=== PATIENT | male | born 1985 | race Caucasian/White ===

== ENCOUNTER 2017-01-18 11:18 | Emergency (ER) | payer SELFPAY ==
[2017-01-18 11:37] VITALS: BP 120/80
--- NOTE | 2017-01-18 12:13 | ER Document Report ---
ED Hand/Wrist Injury - General Chief Complaint: Laceration Stated Complaint: FINGER INJURY Time seen by provider: 12:08 Mode of Arrival: Ambulatory Information source: Patient Notes: 31-year-old male presents to ED for a laceration to his left fifth finger. Laceration is very superficial no bleeding. Patient stated he did not know he cut himself until he looked down and saw that he was bleeding. TRAVEL OUTSIDE OF THE [place] IN LAST 30 DAYS: No - HPI Injury to: Small finger Onset: This morning Where: Home, Indoors Timing: Still present Quality of pain: Burning Severity: Mild Pain Level: 2 Context: Laceration - Very superficial - Related Data Allergies/Adverse Reactions: No Known Allergies Allergy (Verified 01/18/17 11:33) Past Medical History - General Information source: Patient - Social History Smoking Status: Current Every Day Smoker Cigarette use (# per day): Yes - less than half a pack a day Chew tobacco use (# tins/day): No Smoking Education Provided: Yes - less than 2 minutes Drug Abuse: None Occupation: [employer] Lives with: Spouse/Significant other Family History: Arthritis, CAD, COPD, CVA, DM, Hyperlipidemia, Hypertension, Malignancy, Thyroid Disfunction Patient has suicidal ideation: No Patient has homicidal ideation: No - Past Medical History Cardiac Medical History: Reports: None Pulmonary Medical History: Reports: Hx Bronchitis, Hx Pneumonia EENT Medical History: Reports: None Neurological Medical History: Reports: None Endocrine Medical History: Reports: None Renal/ Medical History: Reports: Other - Hypospadias Malignancy Medical History: Reports None GI Medical History: Reports: None Musculoskeltal Medical History: Reports None Skin Medical History: Reports None Psychiatric Medical History: Reports: None Traumatic Medical History: Reports: None Infectious Medical History: Reports: None Past Surgical History: Reports: Hx Tonsillectomy, Hx Urinary Tract Surgery - Repair of hypospadias - Immunizations Hx Diphtheria, Pertussis, Tetanus Vaccination: Yes Review of Systems - Review of Systems Constitutional: No symptoms reported EENT: No symptoms reported Cardiovascular: No symptoms reported Respiratory: No symptoms reported Gastrointestinal: No symptoms reported Genitourinary: No symptoms reported Male Genitourinary: No symptoms reported Musculoskeletal: No symptoms reported Skin: Other - Superficial laceration to the fifth left finger Hematologic/Lymphatic: No symptoms reported Neurological/Psychological: No symptoms reported -: Yes All other systems reviewed and negative Physical Exam - Vital signs Vitals: Temp Pulse Resp BP Pulse Ox 97.8 F 94 16 120/80 98 01/18/17 11:34 01/18/17 11:34 01/18/17 11:34 01/18/17 11:34 01/18/17 11:34 Interpretation: Normal - General General appearance: Appears well, Alert - HEENT Head: Normocephalic, Atraumatic Eyes: Normal Pupils: PERRL - Respiratory Respiratory status: No respiratory distress Chest status: Nontender Breath sounds: Normal Chest palpation: Normal - Cardiovascular Rhythm: Regular Heart sounds: Normal auscultation Murmur: No - Abdominal Inspection: Normal Distension: No distension Bowel sounds: Normal Tenderness: Nontender Organomegaly: No organomegaly - Back Back: Normal, Nontender - Extremities General upper extremity: Normal inspection, Nontender, Normal color, Normal ROM , Normal temperature General lower extremity: Normal inspection, Nontender, Normal color, Normal ROM , Normal temperature, Normal weight bearing. No: Crescencio's sign - Neurological Neuro grossly intact: Yes Cognition: Normal Orientation: AAOx4 Jarad Coma Scale Eye Opening: Spontaneous [place] Coma Scale Verbal: Oriented Jarad Coma Scale Motor: Obeys Commands Jarad Coma Scale Total: 15 Speech: Normal Motor strength normal: LUE, RUE, LLE, RLE Sensory: Normal - Psychological Associated symptoms: Normal affect, Normal mood - Skin Skin Temperature: Warm Skin Moisture: Dry Skin Color: Normal Skin irregularity: Laceration - Left fifth finger very superficial Course - Re-evaluation Re-evalutation: 01/18/17 12:15 Finger cleaned with warm water and soap and bacitracin applied with a Band-Aid. 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 - Vital Signs Vital signs: Temp Pulse Resp BP Pulse Ox 97.8 F 94 16 120/80 98 01/18/17 11:34 01/18/17 11:34 01/18/17 11:34 01/18/17 11:34 01/18/17 11:34 Discharge - Discharge Clinical Impression: laceration left fifth finger Condition: Stable Disposition: HOME, SELF-CARE Instructions: Family Physicians / Practices Additional Instructions: NON-SUTURED LACERATION: Your laceration did not require suturing. Some lacerations cannot be sutured because of increased infection risk, while others simply don't need stitches because they are shallow or very short. Your injury should be protected while it heals. Usually complete healing takes 10 to 14 days. Keep the dressing clean and dry, and change it every day. If you notice increasing pain, redness, swelling, drainage, or tender lumps in the armpit or groin above the injury, infection may be present. You should call the doctor at once. SOAP CLEANSING: Gently wash the wound daily using a mild soap (like Ivory, Phisoderm, Neutrogena). Use warm water, rubbing gently until all debris, ooze, and crusting have been washed from the wound. Allow to dry briefly (about 10 minutes) after cleaning. Repeat this cleansing at least three times a day for the first two days and then once or twice a day. ANTIBIOTIC OINTMENT PROTECTION: Your wounds are such that dressing them is not practical or optional. After cleansing, you should apply a thin coating of antibiotic ointment ( Bacitracin, not Neosporin) to the wounds at least three times daily. This lessens infection risk, and may decrease the amount of scarring. Use a q-tip or dull butter knife, not your finger, to apply this ointment. Any debris or ooze which builds up in the ointment should be gently rubbed off with a sterile gauze pad. Harder crusting may need to be gently scrubbed off with a clean wash cloth with soap and warm water, perhaps applying a warm, wet wash cloth to the wound for ten minutes first. Development of redness, severe itching, or blistering may mean allergy to the ointment. See the doctor. FOLLOW-UP CARE: If you have been referred to a physician for follow-up care, call the physician s office for an appointment as you were instructed or within the next two days. If you experience worsening or a significant change in your symptoms, notify the physician immediately or return to the Emergency Department at any time for re-evaluation. Please complete the patient's satisfaction survey if you get one and return. If you do not receive a survey you can go to [facility] website [email or web address] and placed her comments about your very good care. Thank you very much. It was a pleasure be in your medical provider today. Forms: Return to Work, Smoking Cessation Education
== END 2017-01-18 12:20 | disposition home or self-care (01) ==
LOC: ER 11:18
DX: S61.217A Laceration without foreign body of left little finger without damage to nail, initial encounter (principal); W45.8XXA Other foreign body or object entering through skin, initial encounter; Y92.009 Unspecified place in unspecified non-institutional (private) residence as the place of occurrence of the external cause; F17.210 Nicotine dependence, cigarettes, uncomplicated; Z71.6 Tobacco abuse counseling
CPT/HCPCS: 99282

== ENCOUNTER 2017-05-06 20:48 | Emergency (ER) | payer SELFPAY ==
--- NOTE | 2017-05-06 22:01 | RADIOLOGY REPORT (SQ) ---
EXAM DESCRIPTION: FOOT RIGHT COMPLETE COMPLETED DATE/TIME: 05/06/2017 9:43 pm REASON FOR STUDY: pain COMPARISON: None. NUMBER OF VIEWS: Three views. TECHNIQUE: AP, lateral and oblique radiographic images acquired of the right foot. LIMITATIONS: None. FINDINGS: MINERALIZATION: Normal. BONES: Fracture is identified involving the distal end of the proximal phalanx of the 2nd digit which extends to the articular surface. No other evidence for fracture is seen. JOINTS: No effusions. SOFT TISSUES: No soft tissue swelling. No foreign body. OTHER: No other significant finding. IMPRESSION: Fracture involving the distal end of the proximal phalanx of the 2nd digit as noted hermelinda gautam. No other evidence for fracture is seen TECHNICAL DOCUMENTATION: JOB ID: [id number] [email or web address]- All Rights Reserved
--- NOTE | 2017-05-06 22:17 | ER Document Report ---
ED Extremity Problem, Lower - General Chief Complaint: Foot Injury Stated Complaint: POSSIBLE RIGHT FOOT BROKEN Time Seen by Provider: 05/06/17 21:55 Information source: Patient, Relative TRAVEL OUTSIDE OF THE [place] IN LAST 30 DAYS: No - HPI Location: 3rd Toe Where: Home Recent injury: Yes - Related Data Allergies/Adverse Reactions: No Known Allergies Allergy (Verified 05/06/17 21:17) Past Medical History - Social History Smoking Status: Never Smoker Family History: Reviewed & Not Pertinent Patient has suicidal ideation: No Patient has homicidal ideation: No Pulmonary Medical History: Reports: Hx Bronchitis, Hx Pneumonia Renal/ Medical History: Denies: Hx Peritoneal Dialysis Past Surgical History: Reports: Hx Tonsillectomy, Hx Urinary Tract Surgery - Immunizations Hx Diphtheria, Pertussis, Tetanus Vaccination: Yes Review of Systems - Review of Systems Musculoskeletal: Other - pain To third digit right foot Skin: No symptoms reported Neurological/Psychological: No symptoms reported Physical Exam - Vital signs Vitals: Temp Pulse Resp BP Pulse Ox 98.3 F 56 L 18 123/63 98 05/06/17 21:18 05/06/17 21:18 05/06/17 21:18 05/06/17 21:18 05/06/17 21:18 - General General appearance: Appears well, Alert - Respiratory Respiratory status: No respiratory distress Chest status: Nontender Breath sounds: Normal Chest palpation: Normal - Cardiovascular Rhythm: Regular Heart sounds: Normal auscultation Murmur: No - Extremities General upper extremity: Tender - Pain swelling and ecchymosis at the third digit of the right foot, tenderness or deformity at the ankle or proximal tib- fib. Course - Re-evaluation Re-evalutation: 05/06/17 23:54 got angry and kicked the chair yesterday. Is complaining of pain at the right phalanx of his foot. Denies any other history or injury. 05/06/17 23:57 stable phalanyx fracture of the right third digit. given post op shoe crutches ice elevation and pcp follow up - Vital Signs Vital signs: Temp Pulse Resp BP Pulse Ox 98.3 F 56 L 16 130/84 H 99 05/06/17 22:23 05/06/17 22:23 05/06/17 22:23 05/06/17 22:23 05/06/17 22:23 Discharge - Discharge Clinical Impression: closed fracture phalanx toe Condition: Stable Disposition: HOME, SELF-CARE Additional Instructions: Fractured Toe You have fractured your toe. Although this fracture doesn't need a cast or splint, emergency evaluation was needed to assess the straightness of the bones and joints. Reduction ("setting") is necessary for toe fractures which are crooked or twisted. A toe fracture will heal in about three weeks. Usually, the fractured toe is taped to the next toe. The second toe acts as a moving splint to protect the broken one. Ice and elevation help during the first 48 hours. You may need crutches at first if walking is painful. When you begin walking, be careful NOT to do things that hurt. If weight bearing is not comfortable within a few days, you may require a special shoe, walking boot, or cast. Call the doctor or return at once if severe swelling, severe pain, or numbness develop in the toe, or if you suspect you may have re-injured it. Prescriptions: Naproxen [Naprosyn 375 Mg Tablet] 375 mg PO PRN PRN #12 tablet PRN Reason: Forms: Return to Work Referrals: [facility] [Provider Group] (5-7 days return to er sooner for increasing worsening or new symptoms)
[2017-05-06] MEDS ORDERED: HYDROCODONE/ACETAMINOPHEN 5-325 MG TABLET PO ONE (22:21)
[2017-05-06 22:24] VITALS: BP 130/84
== END 2017-05-06 22:48 | disposition home or self-care (01) ==
LOC: ER 20:48
DX: S92.511A Displaced fracture of proximal phalanx of right lesser toe(s), initial encounter for closed fracture (principal); W22.03XA Walked into furniture, initial encounter; Y92.009 Unspecified place in unspecified non-institutional (private) residence as the place of occurrence of the external cause
CPT/HCPCS: 99283

== ENCOUNTER 2017-07-26 16:29 | Emergency (ER) | payer SELFPAY ==
[2017-07-26] MEDS ORDERED: PREDNISONE 20 MG TABLET PO ONE (17:41)
--- NOTE | 2017-07-26 17:42 | ER Document Report ---
HPI - HPI Patient complains to provider of: cough, congestion, fever Pain Level: 0 Context: Patient is a 32-year-old male comes emergency department for chief complaint of fever, cough, congestion for the past 2 days. He has been exposed to his children who are sick with similar symptoms although he is unsure of their specific diagnosis. He wants to be tested for the flu. He smokes, he denies any daily medications. - DERM Skin Color: Normal Past Medical History - General Information source: Patient - Social History Smoking Status: Never Smoker Frequency of alcohol use: None Drug Abuse: None Lives with: Family Family History: Reviewed & Not Pertinent Patient has suicidal ideation: No Patient has homicidal ideation: No Pulmonary Medical History: Reports: Hx Bronchitis, Hx Pneumonia Renal/ Medical History: Denies: Hx Peritoneal Dialysis Past Surgical History: Reports: Hx Tonsillectomy, Hx Urinary Tract Surgery - Immunizations Hx Diphtheria, Pertussis, Tetanus Vaccination: Yes Vertical Provider Document - CONSTITUTIONAL General Appearance: WD/WN, No Apparent Distress - INFECTION CONTROL TRAVEL OUTSIDE OF THE [place] IN LAST 30 DAYS: No - HEENT HEENT: Atraumatic, Normocephalic. negative: Normal ENT Exam - Sinus congestion and mild maxillary sinus tenderness, otherwise unremarkable ENT exam - RESPIRATORY Respiratory: Breath Sounds Normal, No Respiratory Distress, Other - A few coarse breath sounds, otherwise good breath sounds O2 Sat by Pulse Oximetry: 99 - CARDIOVASCULAR Cardiovascular: Regular Rate, Regular Rhythm - GI/ABDOMEN Gastrointestinal: Abdomen Soft, Abdomen Non-Tender - MUSCULOSKELETAL/EXTREMETIES Musculoskeletal/Extremeties: MAEW, FROM, Non-Tender - NEURO Level of Consciousness: Awake, Alert, Appropriate - DERM Integumentary: Warm, Dry, No Rash Course - Re-evaluation Re-evalutation: Influenza negative. Patient with multiple exposures which does not suggest pneumonia, symptoms started yesterday. Discussed x-ray but this was declined. No respiratory distress on examination although patient does have some coarse breath sounds and is a smoker, has some sinus tenderness. Patient will be placed on prednisone and azithromycin. - Vital Signs Vital signs: Temp Pulse Resp BP Pulse Ox 98.5 F 78 12 126/80 H 99 07/26/17 16:44 07/26/17 16:44 07/26/17 16:44 07/26/17 16:44 07/26/17 16:44 Discharge - Discharge Clinical Impression: Cough, Sinus congestion Fever Qualifiers: Fever type: unspecified Qualified Code(s): R50.9 - Fever, unspecified Condition: Stable Disposition: HOME, SELF-CARE Additional Instructions: Your influenza test is negative. This could still be viral, but you are being treated for bronchitis with possible early underlying pneumonia. Take the prednisone as prescribed, take the azithromycin as prescribed, take Tylenol or ibuprofen for fever and chills, drink plenty of fluids and rest. Follow-up with primary care. Return to emergency department for any concerning worsening symptoms including difficulty breathing. Prescriptions: Azithromycin [Zithromax] 250 mg PO DAILY #4 tablet Prednisone [Deltasone 10 mg Tablet] 10 mg PO ASDIR PRN #21 tablet PRN Reason: Forms: Return to Work
[2017-07-26] MEDS ORDERED: AZITHROMYCIN 250 MG TABLET PO ONE (19:19)
[2017-07-26 20:47] VITALS: BP 124/70
== END 2017-07-26 20:47 | disposition home or self-care (01) ==
LOC: ER 16:29
DX: R05 Cough (principal); R50.9 Fever, unspecified; R09.81 Nasal congestion; F17.200 Nicotine dependence, unspecified, uncomplicated
CPT/HCPCS: 99283; 87804; J7512

== ENCOUNTER 2018-01-27 16:58 | Emergency (ER) | payer SELFPAY ==
--- NOTE | 2018-01-27 17:46 | ER Document Report ---
ED ENT - General Chief Complaint: Sore Throat Stated Complaint: SORE THROAT Time Seen by Provider: 01/27/18 17:17 Mode of Arrival: Ambulatory Information source: Patient TRAVEL OUTSIDE OF THE [place] IN LAST 30 DAYS: No - HPI Patient complains to provider of: Throat problem, Other - cough Notes: Patient is here with complaints of cough, congestion, sore throat, body aches, fever for the last 3 days. Fever seems to have resolved although he does report waking up sweaty this morning. He denies any rash. He denies any nausea , vomiting, diarrhea. He denies any abdominal pain. He states that he has some pain in the right side of his chest when he coughs, but denies any shortness of breath. No rash. He denies any chronic medical problems. He takes no daily medications. He is a smoker. He denies any headache, blurred vision, numbness, tingling, weakness. Nothing makes his symptoms better or worse. States that his son was recently ill with pinkeye and pneumonia. - Related Data Allergies/Adverse Reactions: No Known Allergies Allergy (Verified 07/26/17 16:44) Past Medical History - Social History Smoking Status: Current Every Day Smoker Frequency of alcohol use: None Drug Abuse: None Family History: Reviewed & Not Pertinent Patient has suicidal ideation: No Patient has homicidal ideation: No Pulmonary Medical History: Reports: Hx Bronchitis, Hx Pneumonia Renal/ Medical History: Denies: Hx Peritoneal Dialysis Past Surgical History: Reports: Hx Tonsillectomy, Hx Urinary Tract Surgery - Immunizations Hx Diphtheria, Pertussis, Tetanus Vaccination: Yes Review of Systems - Review of Systems -: Yes All other systems reviewed and negative Physical Exam - Vital signs Vitals: Temp Pulse Resp BP Pulse Ox 97.8 F 83 16 129/87 H 99 01/27/18 17:01 01/27/18 17:01 01/27/18 17:01 01/27/18 17:01 01/27/18 17:01 - Notes Notes: GENERAL: alert, cooperative, nontoxic, no distress. HEAD: normocephalic, atraumatic EYES: conjunctiva pink without discharge, no external redness or swelling. EARS: no external swelling, no external redness, no mastoid redness, swelling, tenderness. Ear canals are clear without swelling or drainage. TMs pearly rojas , no redness, no bulging, normal landmarks, no perforation. NOSE: atraumatic, no external swelling. clear rhinorrhea noted. MOUTH/THROAT: mucous membranes moist and pink, posterior pharynx without erythema, swelling, exudate. No trismus or drooling. NECK: soft, supple, full range of motion, no meningismus. CHEST: no distress, lungs clear and equal throughout. No wheezing, rales, rhonchi. CARDIAC: regular rate and rhythm, no murmur, normal capillary refill, normal pulses. No peripheral edema noted. BACK: full range of motion, no CVA tenderness. EXTREMITIES: full range of motion of all extremities. No redness, no swelling. NEURO: alert and oriented A&O3, no focal deficits, full range of motion of all extremities. PYSCH: appropriate mood, affect. Patient is cooperative. SKIN: pink, warm, dry, no rash. Course - Re-evaluation Re-evalutation: 01/27/18 19:37 Patient is nontoxic appearing stable vitals. Is here with complaints of flulike symptoms with sore throat, body aches, fatigue, cough. He states that he felt like he had fevers the first day but that seems to has resolved. Occasional pain in his chest only with coughing. No chest pain currently. No shortness of breath. He is not hypoxic. Patient states he is actually starting to feel somewhat better. States that he was supposed to work tonight and is concerned that he may not be able to work tonight. This point the patient had a negative chest x-ray and a negative strep. Likely has either influenza or viral syndrome. He will be discharged home with symptomatic treatment. He states that he currently has Motrin and TheraFlu at home. Instructed that these would be fine to take for his symptomatic relief. He should follow-up if he has not improved in the next 5-7 days, sooner for worsening symptoms, high fever, persistent vomiting, difficulty breathing, or for any further concerns. The patient is noted to have elevated blood pressure during today's emergency department visit. The patient was informed of this finding. The patient was instructed that this may be related to pre-hypertension and requires further evaluation with a primary care provider. The patient has no hypertensive symptoms at this time. The patient's emergency department workup and current diagnosis were explained to the patient and or family. Follow-up instructions were provided. Medications if prescribed were discussed. Instructions for when to return to the emergency department including specific worrisome symptoms were discussed with the patient and/or family. - Vital Signs Vital signs: Temp Pulse Resp BP Pulse Ox 97.8 F 83 16 129/87 H 99 01/27/18 17:01 01/27/18 17:01 01/27/18 17:01 01/27/18 17:01 01/27/18 17:01 - Diagnostic Test Radiology reviewed: Image reviewed, Reports reviewed - Negative chest x-ray Discharge - Discharge Clinical Impression: Viral syndrome URI (upper respiratory infection) Qualifiers: URI type: unspecified viral URI Qualified Code(s): J06.9 - Acute upper respiratory infection, unspecified Condition: Stable Disposition: HOME, SELF-CARE Instructions: Upper Respiratory Illness ([facility]), Viral Syndrome ([facility]), Family Physicians / Practices Additional Instructions: Take your [id number] medication as directed. Drink plenty of fluids. Follow-up if not better in 5-7 days, sooner for worsening symptoms, difficulty breathing, severe abdominal pain, persistent vomiting, or for any further concerns. Your blood pressure was elevated during today's visit. Have this rechecked with your doctor. Forms: Elevated Blood Pressure, Smoking Cessation Education, Return to Work Referrals: [facility] [Provider Group] - Follow up as needed
--- NOTE | 2018-01-27 17:47 | RADIOLOGY REPORT (SQ) ---
EXAM DESCRIPTION: CHEST 2 VIEWS COMPLETED DATE/TIME: 01/27/2018 5:38 pm REASON FOR STUDY: cough, right chest pain, fever COMPARISON: 06/12/2013 EXAM PARAMETERS: NUMBER OF VIEWS: two views TECHNIQUE: Digital Frontal and Lateral radiographic views of the chest acquired. RADIATION DOSE: NA LIMITATIONS: none FINDINGS: LUNGS AND PLEURA: No opacities, masses or pneumothorax. No pleural effusion. MEDIASTINUM AND HILAR STRUCTURES: No masses or contour abnormalities. HEART AND VASCULAR STRUCTURES: Heart normal size. No evidence for failure. BONES: No acute findings. HARDWARE: None in the chest. OTHER: No other significant finding. IMPRESSION: NO ACUTE RADIOGRAPHIC FINDING IN THE CHEST. TECHNICAL DOCUMENTATION: JOB ID: [id number] [employer]- All Rights Reserved Reading location - IP/workstation name: [email or web address]
[2018-01-27 19:50] VITALS: BP 124/78
== END 2018-01-27 19:51 | disposition home or self-care (01) ==
LOC: ER 16:58
DX: J06.9 Acute upper respiratory infection, unspecified (principal); B97.89 Other viral agents as the cause of diseases classified elsewhere; J02.9 Acute pharyngitis, unspecified; R05 Cough; R07.89 Other chest pain; R61 Generalized hyperhidrosis; F17.200 Nicotine dependence, unspecified, uncomplicated; R53.83 Other fatigue; Z87.01 Personal history of pneumonia (recurrent)
CPT/HCPCS: 71046; 87070; 87880; 99283

== ENCOUNTER 2018-08-03 07:50 | Emergency (ER) | payer SELFPAY ==
[2018-08-03] MEDS ORDERED: ASPIRIN 81 MG TABLET, CHEWABLE PO ONE (08:16)
--- NOTE | 2018-08-03 08:17 | ER Document Report ---
ED Cardiac - General Chief Complaint: Chest Pain Stated Complaint: CHEST PAIN Mode of Arrival: Ambulatory Information source: Patient Notes: 33 yo smoker , non drugs, no alcohol, tonsillectory, hypospadius salima got sudden onset left shoulder pain at 0345 after getting up to urinate. Radiated across chest over 3 minutes to right lower lung with deep breath. No recent URI or fever. No hx PE or pneumothorax. PMH: non dm, non htn, non hyperlipidemic. FM: grandparents CAD, COPD 70's, dad with severe CAD in late 40's TRAVEL OUTSIDE OF THE [place] IN LAST 30 DAYS: No - Related Data Allergies/Adverse Reactions: No Known Allergies Allergy (Verified 08/03/18 07:51) Past Medical History - General Information source: Patient - Social History Smoking Status: Current Every Day Smoker Lives with: Family Family History: Reviewed & Not Pertinent Pulmonary Medical History: Reports: Hx Bronchitis, Hx Pneumonia Renal/ Medical History: Denies: Hx Peritoneal Dialysis Surgical Hx: Negative Past Surgical History: Reports: Hx Tonsillectomy, Hx Urinary Tract Surgery - Immunizations Hx Diphtheria, Pertussis, Tetanus Vaccination: Yes Review of Systems - Review of Systems Constitutional: No symptoms reported EENT: No symptoms reported Cardiovascular: See HPI Respiratory: See HPI Gastrointestinal: No symptoms reported Genitourinary: No symptoms reported Male Genitourinary: No symptoms reported Musculoskeletal: See HPI Skin: No symptoms reported Hematologic/Lymphatic: No symptoms reported Neurological/Psychological: No symptoms reported Physical Exam - Vital signs Vitals: Pulse Ox 100 08/03/18 08:42 Interpretation: Normal - General General appearance: Appears well, Alert - HEENT Head: Normocephalic, Atraumatic Eyes: Normal Conjunctiva: Normal Pupils: PERRL Tympanic membrane: Normal Pharynx: Normal Neck: Supple. No: Lymphadenopathy, Thyromegally - Respiratory Respiratory status: No respiratory distress Chest status: Tender - right lower lateral chest wall, no rash Breath sounds: Normal Chest palpation: Normal - Cardiovascular Rhythm: Regular Heart sounds: Normal auscultation Murmur: No - Abdominal Inspection: Normal Distension: No distension Bowel sounds: Normal Tenderness: Nontender. No: Tender Organomegaly: No organomegaly - Back Back: Normal, Nontender. No: Tender, CVA tenderness, Vertebra tenderness - Extremities General upper extremity: Normal inspection, Nontender, Normal color, Normal ROM , Normal temperature General lower extremity: Normal inspection, Nontender, Normal color, Normal ROM , Normal temperature, Normal weight bearing. No: Crescencio's sign - Neurological Neuro grossly intact: Yes Cognition: Normal Orientation: AAOx4 Patton Coma Scale Eye Opening: Spontaneous Patton Coma Scale Verbal: Oriented Jarad Coma Scale Motor: Obeys Commands Patton Coma Scale Total: 15 Speech: Normal Motor strength normal: LUE, RUE, LLE, RLE Sensory: Normal - Psychological Associated symptoms: Normal affect, Normal mood - Skin Skin Temperature: Warm Skin Moisture: Dry Skin Color: Normal Skin irregularity: negative: Rash Course - Re-evaluation Re-evalutation: 08/03/18 10:[address] stevenson, rec lipid panel, ekg NSR incomplete RBBB , no EKG to compare to. chest xray is negative. other labs OK. 08/03/18 13:33 Second troponin is negative I will do the lifestyle instructions for changing which would be low-cholesterol diet, quit smoking, I will refer to family practice and also Dr. Wilson for cardiology recommended by Dr. Stevenson. - Vital Signs Vital signs: Temp Pulse Resp BP Pulse Ox 13 125/84 100 08/03/18 13:51 08/03/18 13:52 08/03/18 09:01 - Laboratory Result Diagrams: 08/03/18 08:35 08/03/18 08:35 Laboratory results interpreted by me: 08/03/18 08/03/18 08/03/18 08:35 08:35 08:35 WBC 10.6 H Carbon Dioxide 31 H ALT 15 L LDL Cholesterol Direct 147 H HDL Cholesterol 33 L Discharge - Discharge Clinical Impression: right lower lateral chest wall tender, Elevated LDL cholesterol level, Low HDL (under 40) Chest pain Qualifiers: Chest pain type: unspecified Qualified Code(s): R07.9 - Chest pain, unspecified Condition: Good Disposition: HOME, SELF-CARE Instructions: Aspirin (Cardiac) ([facility]), Chest Wall Pain ([facility]), Stop Smoking ([facility] ), Warm Packs ([facility]) Additional Instructions: 81 mg baby aspirin daily Quit smoking Call and schedule appointment with a family practice doctor Call and schedule an 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
--- NOTE | 2018-08-03 08:23 | EKG REPORT ---
SEVERITY:- ABNORMAL ECG - SINUS OR ECTOPIC ATRIAL RHYTHM INCOMPLETE RIGHT BUNDLE BRANCH BLOCK : Confirmed by: Chaim Wilson 03-Aug-2018 08:22:50
--- NOTE | 2018-08-03 08:48 | RADIOLOGY REPORT (SQ) ---
EXAM DESCRIPTION: CHEST 2 VIEWS COMPLETED DATE/TIME: 08/03/2018 8:37 am REASON FOR STUDY: sudden onset chest pain COMPARISON: 01/27/2018 EXAM PARAMETERS: NUMBER OF VIEWS: two views TECHNIQUE: Digital Frontal and Lateral radiographic views of the chest acquired. RADIATION DOSE: NA LIMITATIONS: none FINDINGS: LUNGS AND PLEURA: No opacities, masses or pneumothorax. No pleural effusion. MEDIASTINUM AND HILAR STRUCTURES: No masses or contour abnormalities. HEART AND VASCULAR STRUCTURES: Heart normal size. No evidence for failure. BONES: No acute findings. HARDWARE: None in the chest. OTHER: No other significant finding. IMPRESSION: NO ACUTE RADIOGRAPHIC FINDING IN THE CHEST. TECHNICAL DOCUMENTATION: JOB ID: [id number] [employer]- All Rights Reserved Reading location - IP/workstation name: [email or web address]
[2018-08-03 09:00] LABS: ABSOLUTE BASOPHILS # (AUTO) 0.1 10^3/uL (0.0-0.2); ABSOLUTE EOSINOPHILS # (AUTO) 0.3 10^3/uL (0.0-0.6); ABSOLUTE LYMPHOCYTES (AUTO) 2.7 10^3/uL (0.5-4.7); ABSOLUTE MONOCYTES (AUTO) 0.5 10^3/uL (0.1-1.4); BASOPHILS % (AUTO) 0.6 % (0-2); EOSINOPHILS % (AUTO) 2.8 % (0-6); HEMATOCRIT 47.3 % (37.9-51.0); HEMOGLOBIN 16.1 g/dL (13.5-17.0); LYMPHOCYTES % (AUTO) 25.1 % (13-45); MEAN CORPUSCULAR HEMOGLOBIN 30.8 pg (27.0-33.4); MEAN CORPUSCULAR HGB CONC 33.9 g/dL (32.0-36.0); MEAN CORPUSCULAR VOLUME 91 fl (80-97); MONOCYTES % (AUTO) 4.7 % (3-13); PLATELET COUNT 263 10^3/uL (150-450); RED BLOOD COUNT 5.22 10^6/uL (4.35-5.55); RED CELL DISTRIBUTION WIDTH 13.3 % (11.5-14.0); SEGMENTED NEUTROPHILS % (AUTO) 66.8 % (42-78); TOTAL CELLS COUNTED % (AUTO) 100 %; WHITE BLOOD COUNT 10.6 10^3/uL (4.0-10.5)
[2018-08-03 09:19] LABS: ALANINE AMINOTRANSFERASE 15 U/L (21-72); ALBUMIN 4.6 g/dL (3.5-5.0); ALKALINE PHOSPHATASE 62 U/L (38-126); ANION GAP 7 (5-19); ASPARTATE AMINO TRANSFERASE 24 U/L (17-59); BILIRUBIN,DIRECT 0.2 mg/dL (0.0-0.4); BILIRUBIN,TOTAL 0.6 mg/dL (0.2-1.3); BLOOD UREA NITROGEN 8 mg/dL (7-20); CALCIUM 9.9 mg/dL (8.4-10.2); CARBON DIOXIDE 31 mmol/L (22-30); CHLORIDE 105 mmol/L (98-107); CREATINE KINASE 107 U/L (55-170); GLUCOSE 95 mg/dL (75-110); POTASSIUM 4.5 mmol/L (3.6-5.0); SODIUM 143.2 mmol/L (137-145); TOTAL PROTEIN 7.2 g/dL (6.3-8.2)
[2018-08-03 09:32] LABS: TROPONIN I < 0.012 ng/mL
[2018-08-03 11:17] LABS: CHOLESTEROL 197.67 mg/dL (0-200); TRIGLYCERIDES 90 mg/dL (<150)
[2018-08-03 11:28] LABS: DIRECT LDL 147 mg/dL (<100)
[2018-08-03 13:54] VITALS: BP 125/84
== END 2018-08-03 13:54 | disposition home or self-care (01) ==
LOC: ER 07:50
DX: R07.1 Chest pain on breathing (principal); M25.512 Pain in left shoulder; E78.00 Pure hypercholesterolemia, unspecified; F17.200 Nicotine dependence, unspecified, uncomplicated; Z82.49 Family history of ischemic heart disease and other diseases of the circulatory system; Z82.5 Family history of asthma and other chronic lower respiratory diseases; Z87.01 Personal history of pneumonia (recurrent)
CPT/HCPCS: 36415; 71046; 80053; 80061; 82550; 82553; 84484; 85025; 93005; 93010; 99285

== ENCOUNTER 2018-11-08 17:20 | Emergency (ER) | payer SELFPAY | END 2018-11-08 17:40 | disposition left against medical advice (07) | LOC: ER 17:20 | DX: Z53.21 Procedure and treatment not carried out due to patient leaving prior to being seen by health care provider (principal) ==

== ENCOUNTER 2018-11-09 09:42 | Emergency (ER) | payer SELFPAY ==
[2018-11-09 09:46] VITALS: BP 118/76
[2018-11-09] MEDS ORDERED: KETOROLAC TROMETHAMINE INJ/PF 30 MG/1 ML SDV IM ONE (10:07)
--- NOTE | 2018-11-09 10:08 | ER Document Report ---
HPI - HPI Time Seen by Provider: 11/09/18 09:59 Pain Level: 3 Notes: Patient is a 28-year-old female who presents to the ED complaining of nasal congestion/discharge, dry nonproductive cough, fever (101H), body ache 2 days going on 3. Patient states that he is still eating and drinking without difficulties, but does have a decreased p.o. intake. He is still urinating normally having normal bowel movements. Patient has been using some [id number] meds for symptoms. He denies any significant past medical history including cardiopulmonary history and immunocompromised conditions. Patient denies any IV drug use. + smoker. Patient requesting work note. Denies any current headache, neck pain, sore throat, chest pain, palpitations, syncope, shortness of breath, wheeze, dyspnea, abdominal pain, nausea/vomiting/diarrhea, urinary retention, dysuria, hematuria, or rash. - ROS Systems Reviewed and Negative: Yes All other systems reviewed and negative Past Medical History - Social History Smoking Status: Current Every Day Smoker Family History: Reviewed & Not Pertinent Pulmonary Medical History: Reports: Hx Bronchitis, Hx Pneumonia Renal/ Medical History: Denies: Hx Peritoneal Dialysis Past Surgical History: Reports: Hx Tonsillectomy, Hx Urinary Tract Surgery - Immunizations Hx Diphtheria, Pertussis, Tetanus Vaccination: Yes Vertical Provider Document - CONSTITUTIONAL Agree With Documented VS: Yes Notes: PHYSICAL EXAMINATION: GENERAL: Well-appearing, well-nourished and in no acute distress. A&Ox4. Answ ers questions appropriately. Moves comfortably w/o notable distress HEAD: Atraumatic, normocephalic. EYES: Pupils equal round and reactive to light, extraocular movements intact, sclera anicteric, conjunctiva are normal. ENT: EAC clear b/l. TM's intact b/l without erythema, fluid, or perforation. Nares patent and with clear discharge. oropharynx no erythema without exudates. No tonsilar hypertrophy without erythema or exudate. No palatine shift. Uvula midline. No tongue protrusion. No drooling, hoarseness, or airway compromise. Moist mucous membranes. No sinus tenderness. NECK: Normal range of motion, supple without lymphadenopathy. No rigidity/meningismus. LUNGS: Breath sounds clear to auscultation bilaterally and equal. No wheezes rales or rhonchi. No retractions HEART: Regular rate and rhythm without murmurs, rubs, gallops. ABDOMEN: Soft, nontender, nondistended abdomen. No guarding, no rebound. No masses appreciated. Normal bowel sounds present. No CVA tenderness bilaterally. No hepatosplenomegaly. NEUROLOGICAL: Normal speech, normal gait. Normal sensory, motor exams PSYCH: Normal mood, normal affect. SKIN: Warm, Dry, normal turgor, no rashes or lesions noted. - INFECTION CONTROL TRAVEL OUTSIDE OF THE [place] IN LAST 30 DAYS: No Course - Re-evaluation Re-evalutation: 11/09/18 10:06 Patient is an afebrile, well-hydrated, 33-year-old male who presents to the ED with acute URI, suspect influenza. Vitals are acceptable. PE is otherwise unr emarkable. No labs or imaging warranted at this time based on H&P. Patient has no significant cardiopulmonary or immunocompromised medical conditions. Patient's lungs are clear to auscultation bilaterally without tachycardia, hypoxia, or tachypnea. Patient is tolerating p.o. without any difficulties. Thoroughly reviewed the risks, benefits, potential side effects, estimated cost without insurance with patient. After thorough review, patient declined Tamiflu at this time. Low suspicion for any meningitis, sepsis, peritonsillar/pharyngeal abscess, respiratory compromise, severe dehydration, or other emergent systemic condition at this time. Patient is aware this condition can change from initial presentation and he needs to monitor symptoms closely. Conservative measures otherwise for symptoms. Recheck with your PCM in 3-5 days. Return to the ED with any worsening/concerning symptoms otherwise as reviewed in discharge. Patient is in agreement. - Vital Signs Vital signs: Temp Pulse Resp BP Pulse Ox 98.0 F 102 H 16 118/76 100 11/09/18 09:45 11/09/18 09:45 11/09/18 09:45 11/09/18 09:45 11/09/18 09:45 Discharge - Discharge Clinical Impression: Acute URI Condition: Stable Disposition: HOME, SELF-CARE Instructions: Upper Respiratory Illness ([facility]) Additional Instructions: Maintain adequate fluid intake Take meds as directed tylenol/ibuprofen as needed over the counter cold medication as needed for symptoms Humidified air may help Wash your hands regularly Wear a mask when coughing F/u: with your PCM in 3-5 days for a recheck Return to the ED with any fever, worsening pain, chest pain, palpitations, syncope, worsening RENTERIA, neck pain/stiffness, shortness of breath, wheezing, drooling, trouble swallowing/breathing, abdominal pain, n/v/d, rash, or worsening/concerning symptoms otherwise. Referrals: [facility] [Provider Group] - Follow up as needed
== END 2018-11-09 10:34 | disposition home or self-care (01) ==
LOC: ER 09:42
DX: J06.9 Acute upper respiratory infection, unspecified (principal); R09.81 Nasal congestion; R09.89 Other specified symptoms and signs involving the circulatory and respiratory systems; R05 Cough; R50.9 Fever, unspecified; M79.10 Myalgia, unspecified site; R63.0 Anorexia; F17.200 Nicotine dependence, unspecified, uncomplicated
CPT/HCPCS: 99283; 96372; J1885

== ENCOUNTER 2019-09-30 08:14 | Emergency (ER) | payer SELFPAY ==
[2019-09-30 08:38] VITALS: BP 145/73
== END 2019-09-30 09:00 | disposition left against medical advice (07) ==
LOC: ER 08:14
DX: Z53.21 Procedure and treatment not carried out due to patient leaving prior to being seen by health care provider (principal)

== ENCOUNTER 2020-04-26 20:03 | Emergency (ER) | payer SELFPAY ==
--- NOTE | 2020-04-26 21:59 | ER Document Report ---
HPI - HPI Patient complains to provider of: Note for employer Time Seen by Provider: 04/26/20 21:48 Quality of pain: No pain Pain Level: Denies Context: Presents stating that he did not feel well 4 days ago had nausea and fever. Patient needs a COVID test prior to returning to work. Denies any symptoms at this time. Associated Symptoms: None Exacerbated by: Denies Relieved by: Denies Similar symptoms previously: No Recently seen / treated by doctor: No - ROS ROS below otherwise negative: Yes Systems Reviewed and Negative: Yes All other systems reviewed and negative - CONSTITUTIONAL Constitutional: REPORTS: Fever - 4 days ago - GASTROINTESTINAL Gastrointestinal: REPORTS: Nausea - 4 days ago, now resolved. DENIES: Patient vomiting - DERM Skin Color: Normal Skin Problems: None Past Medical History - General Information source: Patient - Social History Smoking Status: Current Every Day Smoker Frequency of alcohol use: None Drug Abuse: None Occupation: [employer] Family History: Reviewed & Not Pertinent Patient has homicidal ideation: No Pulmonary Medical History: Reports: Hx Bronchitis, Hx Pneumonia Renal/ Medical History: Denies: Hx Peritoneal Dialysis Past Surgical History: Reports: Hx Tonsillectomy, Hx Urinary Tract Surgery - Immunizations Hx Diphtheria, Pertussis, Tetanus Vaccination: Yes Vertical Provider Document - CONSTITUTIONAL Agree With Documented VS: Yes Exam Limitations: No Limitations General Appearance: WD/WN, No Apparent Distress Notes: Full physical exam could not be performed due to covid 19 isolation protocols. Constitutional: Nontoxic appearance, no acute distress Eyes: Nonicteric, extraocular movements intact, sclera clear Cardiovascular: Rate and rhythm normal, no JVD Respiratory: Sounds clear bilaterally, nonlabored breathing, no use of accessory muscles, no tachypnea Gastrointestinal: Abdomen not distended Muculoskeletal: Moves all extremities well, normal gait Skin: Normal color Neuro: Awake alert oriented, normal speech Psych: Normal mood and affect - INFECTION CONTROL TRAVEL OUTSIDE OF THE [place] IN LAST 30 DAYS: No Course - Re-evaluation Re-evalutation: 04/26/20 21:59 The patient was evaluated during the global Covid 19 pandemic, and that diagnosis was suspected/considered upon their initial presentation. Their evaluation, treatment and testing was consistent with current guidelines for patients who present with complaints or symptoms that may be related to Covid 19. Patient presents for screening for possible Covid 19. Patient does not have emergency worrying symptoms such as difficulty breathing, shortness of breath, chest pain, pressure, confusion or cyanosis. Patient appears suitable for discharge as they are not of an advanced age, do not have any chronic medical conditions such as diabetes, CAD, immune deficiency, chronic lung disease or chronic kidney disease. Patient's vital signs are stable and patient is nontoxic in appearance. Good return precautions have been discussed with patient, patient verbalized understanding and is agreeable with discharge plan of care at this time. - Vital Signs Vital signs: Temp Pulse Resp BP Pulse Ox 98.2 F 85 20 133/78 H 99 04/26/20 20:07 04/26/20 20:07 04/26/20 20:07 04/26/20 20:07 04/26/20 20:07 Discharge - Discharge Clinical Impression: Encounter for screening laboratory testing for COVID-19 virus Condition: Stable Disposition: HOME, SELF-CARE Instructions: COVID-19 Guidance for Persons Under Investigation Additional Instructions: Return immediately for any new or worsening symptoms Followup with your primary care provider, call tomorrow to make a followup appointment Forms: Return to Work Referrals: KAILEY UMANZOR MD [Primary Care Provider] - Follow up as needed
[2020-04-26 22:47] VITALS: BP 128/75
== END 2020-04-26 22:20 | disposition home or self-care (01) ==
LOC: ER 20:03
DX: Z03.818 Encounter for observation for suspected exposure to other biological agents ruled out (principal); F17.200 Nicotine dependence, unspecified, uncomplicated
CPT/HCPCS: 99283; 87635; C9803